=== PATIENT | female | born 1945 | race Caucasian/White ===

== ENCOUNTER → 2018-01-31 | Outpatient (CLI) | payer MEDICARE, OTHER ==
[~2018-01-31] MED LIST: ADULT LOW DOSE81 MG PO; ALLOPURINOL 30300 M1 PO; ALLOPURINOL 30300 M2 PO; ANTIPYRINE-BENZ14 ML OT; AUGMENTIN 875875 MG PO; B COMPLEX1 EACH PO; BACLOFEN 10MG T10 M1 PO; CARISOPRODOL 3350 MG PO; CIPROFLOXACIN500 M3 PO; FISH OIL 1,001000 MG PO; FISHOIL PO; FLAGYL500 MG PO; FLEXERIL; FLOMAX PO; GLUMETZA500; KEFLEX PO; KEFLEX250 MG PO; LOPRESSOR PO; MACRODANTIN50 MG PO; METFORMIN HCL500 MG PO; METOPROLOL SUC100 MG PO; NABUMETONE 750750 M1 PO; NORCO 5-325 TA1 EACH PO; PERCOCET 5-3251 EACH PO; PERCOCET 7.5-51 EACH PO; PREDNISONE 10 M10 MG PO; PRINIVIL20 MG PO; PROZAC20 MG PO; RELAFEN750 MG PO; SIMVASTATIN40 MG PO; SKELAXIN 800 M800 M1 PO; TOPROL XL100 MG PO; TRAMADOL 50 MG50 MG PO; ULTRAM 50MG TAB50 MG PO; VITAMIN D1000 UNI1 PO; ZOCOR 20 MG TAB20 M1 PO; ZOFRAN 4 MG ORAL4 M1 DIS; ZOFRAN4 MG PO
--- NOTE | 2018-01-31 13:40 | 2DMMODE ---
[place] [address] 2 D/M-MODE ECHOCARDIOGRAM Name: OLESYA GARCES Room: [facility]#: [id number] Admission: 01/31/18 Attend Phys: Fernando Anna, Discharge: Date of : 47 Date of Service: 01/31/18 1340 Report #: [id number] THIS REPORT FOR: //name// APPROVED REPORT Study performed: 01/31/2018 10:18:50 EXAM: Comprehensive 2D, Doppler, and color-flow Echocardiogram Patient Location: Out-Patient Status: routine BSA: 2.19 HR: 70 bpm Other Information Study Quality: Good Indications Aortic Valve Disease 2D Dimensions LVEF(%): 73.64 (>50%) IVSd: 11.70 (7-11mm) LVOT Diam: 20.08 (18-24mm) LVDd: 51.25 mm PWd: 11.15 (7-11mm) Ascending Ao: 29.86 (22-36mm) LVDs: 29.29 (25-40mm) Aortic Root: 26.43 mm Romero's LVEF: 73.64 % Volumes Left Atrial Volume (Systole) LA ESV Index: 22.30 mL/m2 Aortic Valve AoV Peak Leighton.: 3.13 m/s AO Peak Gr.: 39.16 mmHg LVOT Max P.79 mmHg AO Mean Gr.: 24.70 mmHg LVOT Mean P.41 mmHg LVOT Max V: 1.20 m/s AO V2 VTI: 80.38 cm LVOT Mean V: 0.87 m/s BRYANT (VTI): 1.25 cm2 LVOT V1 VTI: 31.65 cm Mitral Valve MV Peak Gr.: 7.50 mmHg MV Mean Gr.: 3.45 mmHg E/A Ratio: 0.78 [place] [address] 2 D/M-MODE ECHOCARDIOGRAM Name: OLESYA GARCES Room: [facility]#: [id number] Admission: 01/31/18 Attend Phys: Fernando Anna, Discharge: Date of : 47 Date of Service: 01/31/18 1340 Report #: [id number] MV Decel. Time: 327.37 ms MV E Max Leighton.: 0.95 m/s MV PHT: 94.94 ms MVA (PHT): 2.32 cm2 TDI E/Lateral E': 11.88 E/Medial E': 7.92 Medial E' Leighton.: 0.12 m/s Lateral E' Leighton.: 0.08 m/s Pulmonary Valve PV Peak Leighton.: 0.99 m/s PV Peak Gr.: 3.92 mmHg Tricuspid Valve TR Peak Gr.: 20.12 mmHg RVSP: 25.12 mmHg Left Ventricle The left ventricle is normal size. There is normal LV segmental wall motion. Mild concentric left ventricular hypertrophy. Left ventricular systolic function is normal. The left ventricular ejection fraction is within the normal range. LVEF is 55-60%. Grade I - abnormal relaxation pattern. Right Ventricle The right ventricle is normal size. The right ventricular systolic function is normal. Atria The left atrium size is normal. The right atrium size is normal. Aortic Valve Aortic valve is moderately calcified. No aortic regurgitation is present. Moderate aortic stenosis. Mitral Valve Moderate mitral annular calcification. Mild mitral regurgitation. Mild mitral stenosis. Tricuspid Valve The tricuspid valve is normal in structure. Mild tricuspid regurgitation. The RVSP is __25 mmHg. Pulmonic Valve Pulmonic valve is not well visualized. [place] [address] 2 D/M-MODE ECHOCARDIOGRAM Name: OLESYA GARCES Room: [facility]#: [id number] Admission: 01/31/18 Attend Phys: Fernando Anna, Discharge: Date of : 47 Date of Service: 01/31/18 1340 Report #: [id number] Great Vessels The aortic root is normal in size. IVC is normal in size and collapses with >50% inspiration Pericardium There is no pericardial effusion. <Conclusion> Mild concentric left ventricular hypertrophy. LVEF is 55-60%. Moderate aortic stenosis. Mild mitral regurgitation. Mild mitral stenosis. <ELECTRONICALLY SIGNED> By: Alan Reveles MD, FACC 01/31/18 1340 1340 1340 Alan Reveles MD, FACC /INF
== END ==
LOC: M.CRD 09:53
DX: I08.1 Rheumatic disorders of both mitral and tricuspid valves (principal)

== ENCOUNTER → 2018-05-02 | Outpatient (CLI) | payer MEDICARE, OTHER ==
--- NOTE | 2018-05-04 11:57 | PF ---
[address] [address] PULMONARY FUNCTION REPORT Name: OLESYA GARCES Room: [facility]#: [id number] Admission: 05/02/18 Attend Phys: Fernando Anna MD Discharge: Date of : 47 Report #: [id number] THIS REPORT FOR: //name// CC: Marcela Anna DATE OF SERVICE: 05/02/2018 REFERRING PHYSICIAN: Fernando Anna MD/Marcela Lin DO TYPE OF STUDY: Pulmonary function test. SPIROMETRY: FEV1/FVC was 58% predicted, the FEV1 was 1.95 L at 86% predicted, FVC 3.02 L at 101% predicted. No significant bronchodilator response noted. LUNG VOLUMES: Total lung capacity was 98% predicted at 4.89 L. The DLCO was 67% predicted. IMPRESSION: The above pulmonary function test demonstrates evidence of obstructive pulmonary defect of mild degree with normal lung volume and DLCO of 67% predicted, without positive bronchodilator response. <ELECTRONICALLY SIGNED> By: Herman Last MD 05/04/18 1157 1418 [id number] Chavira MD /nt
== END ==
LOC: M.RAD 09:20 → M.PUL 09:20
DX: Z12.31 Encounter for screening mammogram for malignant neoplasm of breast (principal); R06.2 Wheezing; R06.09 Other forms of dyspnea

== ENCOUNTER → 2019-04-22 | Outpatient (CLI) | payer MEDICARE, OTHER ==
[~2019-04-22] MED LIST changes: +MOBIC15 MG PO
== END ==
LOC: M.PC 10:50
DX: M47.26 Other spondylosis with radiculopathy, lumbar region (principal); M48.061 Spinal stenosis, lumbar region without neurogenic claudication; M51.16 Intervertebral disc disorders with radiculopathy, lumbar region

== ENCOUNTER → 2019-05-15 | Outpatient (CLI) | payer MEDICARE, OTHER ==
[~2019-05-15] MED LIST changes: +METOPROLOL SUC200 MG PO; -TOPROL XL100 MG PO; +[UNRECOGNIZED DRUG - OTHER] OPHTHALMIC
== END ==
LOC: M.PC 05:01
DX: M48.061 Spinal stenosis, lumbar region without neurogenic claudication (principal); M47.26 Other spondylosis with radiculopathy, lumbar region; M51.16 Intervertebral disc disorders with radiculopathy, lumbar region; M79.605 Pain in left leg; Z68.42 Body mass index [BMI] 45.0-49.9, adult

== ENCOUNTER → 2019-09-18 | Outpatient (CLI) | payer MEDICARE, OTHER | LOC: M.PC 05:26 | DX: M51.16 Intervertebral disc disorders with radiculopathy, lumbar region (principal); M47.26 Other spondylosis with radiculopathy, lumbar region; M48.061 Spinal stenosis, lumbar region without neurogenic claudication ==

== ENCOUNTER → 2019-09-23 | Outpatient (CLI) | payer MEDICARE, OTHER | LOC: M.RAD 11:14 | DX: Z12.31 Encounter for screening mammogram for malignant neoplasm of breast (principal) ==

== ENCOUNTER → 2019-10-09 | Outpatient (CLI) | payer MEDICARE, OTHER | END | disposition home or self-care (01) | LOC: M.PC 09-30 11:20 | DX: M54.5 Low back pain (principal); M79.605 Pain in left leg; M51.16 Intervertebral disc disorders with radiculopathy, lumbar region; M48.061 Spinal stenosis, lumbar region without neurogenic claudication; M47.26 Other spondylosis with radiculopathy, lumbar region; I10 Essential (primary) hypertension; E11.9 Type 2 diabetes mellitus without complications; E78.00 Pure hypercholesterolemia, unspecified; G47.30 Sleep apnea, unspecified; Z87.442 Personal history of urinary calculi; Z98.890 Other specified postprocedural states; Z79.899 Other long term (current) drug therapy; Z90.49 Acquired absence of other specified parts of digestive tract; Z88.2 Allergy status to sulfonamides; Z79.82 Long term (current) use of aspirin ==

== ENCOUNTER → 2020-08-17 | Outpatient (CLI) | payer MEDICARE, OTHER | LOC: M.PC 10:30 | PROVIDERS: ATTEND Physical Medicine & Rehabilitation | DX: M47.26 Other spondylosis with radiculopathy, lumbar region (principal); M51.16 Intervertebral disc disorders with radiculopathy, lumbar region; Z79.891 Long term (current) use of opiate analgesic ==

== ENCOUNTER → 2020-08-24 | Outpatient (CLI) | payer MEDICARE, OTHER ==
[~2020-08-24] MED LIST changes: +TORSEMIDE20 MG PO
== END | disposition home or self-care (01) ==
LOC: M.PC 10:16
PROVIDERS: ATTEND Physical Medicine & Rehabilitation
DX: M54.5 Low back pain (principal); M51.16 Intervertebral disc disorders with radiculopathy, lumbar region; M48.061 Spinal stenosis, lumbar region without neurogenic claudication; M47.26 Other spondylosis with radiculopathy, lumbar region; M79.605 Pain in left leg; Z98.890 Other specified postprocedural states; Z79.899 Other long term (current) drug therapy; Z88.2 Allergy status to sulfonamides

== ENCOUNTER → 2020-09-07 | Outpatient (CLI) | payer MEDICARE, OTHER | LOC: M.PC 08:12 | PROVIDERS: ATTEND Physical Medicine & Rehabilitation | DX: M51.16 Intervertebral disc disorders with radiculopathy, lumbar region (principal); M47.26 Other spondylosis with radiculopathy, lumbar region; M79.605 Pain in left leg ==